=== PATIENT | male | born 1995 | race Two or more races ===

== ENCOUNTER 2020-04-02 16:43 | Emergency (ER) | payer MEDICAID ==
[2020-04-02] MEDS ORDERED: ALBUTEROL SULFATE HFA (90 MCG/PUFF) 8 GM MDI IH ONE (16:50)
--- NOTE | 2020-04-02 16:52 | ER Document Report ---
HPI - HPI Time Seen by Provider: 04/02/20 16:50 Notes: 24-year-old male patient with history of asthma presenting requesting a refill of his albuterol inhaler. Patient reports he ran out. He denies any shortness of breath or wheezing at this time. He states he usually uses his inhaler at [facility] and knows that he should not be without one. - ROS ROS below otherwise negative: Yes Systems Reviewed and Negative: Yes All other systems reviewed and negative Past Medical History - General Information source: Patient - Social History Smoking Status: Current Every Day Smoker Frequency of alcohol use: Occasional Drug Abuse: Marijuana Family History: None Pulmonary Medical History: Reports: Hx Asthma Surgical Hx: Negative - Immunizations Immunizations up to date: Yes Vertical Provider Document - CONSTITUTIONAL Notes: PHYSICAL EXAMINATION: GENERAL: Well-appearing, well-nourished and in no acute distress. HEAD: Atraumatic, normocephalic. EYES: Pupils equal round extraocular movements intact, conjunctiva are normal. ENT: Nares patent NECK: Normal range of motion LUNGS: No respiratory distress, lung sounds clear and equal bilaterally. Musculoskeletal: Normal range of motion NEUROLOGICAL: Normal speech, normal gait. PSYCH: Normal mood, normal affect. SKIN: Warm, Dry, normal turgor, no rashes or lesions noted. Course - Re-evaluation Re-evalutation: Patient given an albuterol dispense inhaler. A prescription was also sent over. His lung sounds are clear and equal at this time. He is in no acute distress. Discharge - Discharge Clinical Impression: Medication refill Asthma Qualifiers: Asthma severity: mild Asthma persistence: intermittent Asthma complication type: uncomplicated Qualified Code(s): J45.20 - Mild intermittent asthma, uncomplicated Condition: Stable Disposition: HOME, SELF-CARE Additional Instructions: You are seen in the emergency department today for medication refill. Please take 2 puffs every 4 hours as needed for wheezing or shortness of breath. Prescriptions: Albuterol Sulfate [Proair HFA Inhalation Aerosol 8.5 gm MDI] 2 puff IH Q4H PRN #1 mdi PRN Reason: Referrals: LOCALMD,NO [Primary Care Provider] - Follow up as needed
[2020-04-02 17:32] VITALS: BP 131/80
== END 2020-04-02 17:23 | disposition home or self-care (01) ==
LOC: ER 16:43
DX: Z76.0 Encounter for issue of repeat prescription (principal); J45.20 Mild intermittent asthma, uncomplicated; F17.200 Nicotine dependence, unspecified, uncomplicated
CPT/HCPCS: 99283; J3490

== ENCOUNTER 2020-04-13 18:20 | Emergency (ER) | payer SELFPAY ==
[2020-04-13 18:55] VITALS: BP 129/62
--- NOTE | 2020-04-13 19:15 | ER Document Report ---
HPI - HPI Time Seen by Provider: 04/13/20 19:07 Pain Level: 0 Context: Patient is a 24-year-old male presents emergency department with no symptoms, but would like a refill of his inhaler. Patient is originally from [facility]. He states that his primary care provider sent over a prescription for the inhaler, but he went to the pharmacy and the prescription was not there. Denies any shortness of breath, difficulty breathing, chest pain, wheezing, or any other symptoms. - ROS Systems Reviewed and Negative: Yes All other systems reviewed and negative - CONSTITUTIONAL Constitutional: DENIES: Fever, Chills - CARDIOVASCULAR Cardiovascular: DENIES: Chest pain - RESPIRATORY Respiratory: DENIES: Trouble Breathing, Coughing - GASTROINTESTINAL Gastrointestinal: DENIES: Abdominal Pain, Nausea, Patient vomiting - MUSCULOSKELETAL Musculoskeletal: DENIES: Extremity pain - DERM Skin Color: Normal Skin Problems: None Past Medical History - Social History Smoking Status: Current Every Day Smoker Chew tobacco use (# tins/day): No Frequency of alcohol use: None Drug Abuse: None Family History: None Pulmonary Medical History: Reports: Hx Asthma - Immunizations Immunizations up to date: Yes Vertical Provider Document - CONSTITUTIONAL Agree With Documented VS: Yes Exam Limitations: No Limitations General Appearance: No Apparent Distress - HEENT HEENT: Atraumatic, Normocephalic, PERRLA - NECK Neck: Normal Inspection - RESPIRATORY Respiratory: Breath Sounds Normal, No Respiratory Distress - CARDIOVASCULAR Cardiovascular: Regular Rate, Regular Rhythm Pulses: Normal: Radial - MUSCULOSKELETAL/EXTREMETIES Musculoskeletal/Extremeties: FROM - NEURO Level of Consciousness: Awake, Alert, Appropriate Motor/Sensory: No Motor Deficit, No Sensory Deficit - DERM Integumentary: Warm, Dry, No Rash Course - Re-evaluation Re-evalutation: 04/13/20 Patient swelling sounds are clear to auscultation bilaterally. At this time, will order the patient another albuterol inhaler with a spacer. Advised him verbally to follow-up with his primary care provider in [place] over the phone. He is in agreement with this plan. Have a low suspicion for pneumonia, asthma exacerbation, or any life-threatening etiology at this time. Follow-up pr ecautions were given. Verbal discharge instructions were given to the patient. They verbalized understanding. They are stable for discharge. - Vital Signs Vital signs: Temp Pulse Resp BP Pulse Ox 98.7 F 86 16 129/62 H 100 04/13/20 18:54 04/13/20 18:54 04/13/20 18:54 04/13/20 18:54 04/13/20 18:54 Discharge - Discharge Clinical Impression: Medication refill Condition: Stable Disposition: HOME, SELF-CARE Additional Instructions: You were seen today in the emergency department for a refill on your albuterol inhaler. Use the albuterol inhaler as prescribed. Prescriptions: Albuterol Sulfate [Proair HFA Inhalation Aerosol 8.5 gm MDI] 2 puff IH Q4H PRN #1 mdi PRN Reason: Inhaler, Assist Devices [Space Chamber] 1 each MC ASDIR PRN #1 spacer PRN Reason: Referrals: LOCALMD,NO [NO LOCAL MD] - Follow up as needed
== END 2020-04-13 19:20 | disposition home or self-care (01) ==
LOC: ER 18:20
DX: Z76.0 Encounter for issue of repeat prescription (principal); J45.909 Unspecified asthma, uncomplicated
CPT/HCPCS: 99281